=== PATIENT | female | born 1990 | race Two or more races ===

== ENCOUNTER 2024-02-21 07:35 | Inpatient (IN) | payer OTHER ==
[2024-02-21] MEDS: ELECTROLYTE-148 SOLN 500 ML IV ONE ×2 (08:30→10:35)
[2024-02-21 09:40] VITALS: BMI 32.1
[2024-02-21] MEDS ORDERED: IBUPROFEN 600 MG TABLET (FP) PO PRN (09:49)
[2024-02-21] MEDS ORDERED: ONDANSETRON 4 MG/2 ML VIAL IVPUSH PRN (09:49)
[2024-02-21] MEDS ORDERED: ACETAMINOPHEN 325 MG TABLET (FP) PO PRN (09:49)
[2024-02-21] MEDS: CITRIC ACID/SODIUM CITRATE 30 ML UNIT-DOSE CUP PO ONE (10:00)
[2024-02-21] MEDS ORDERED: ELECTROLYTE-148 SOLN 1,000 ML IV SCH (10:30)
[2024-02-21] MEDS ORDERED: morphine SULFATE/PF 1 MG/2 ML (2cc Syringe - QUVA) ONE (10:34)
[2024-02-21] MEDS ORDERED: PHENYLEPHRINE HCL 10 MG/1 ML SINGLE DOSE VIAL ONE (10:35)
[2024-02-21] MEDS ORDERED: ceFAZolin SODIUM 1 GM VIAL ONE ×2 (10:35→10:36)
[2024-02-21] MEDS ORDERED: SODIUM CHLORIDE 0.9% P/F 10 ML VIAL IJ ONE (10:35)
[2024-02-21] MEDS ORDERED: CITRIC ACID/SODIUM CITRATE 30 ML UNIT-DOSE CUP PO ONE (10:45)
[2024-02-21] MEDS ORDERED: ONDANSETRON 4 MG/2 ML VIAL ONE (10:55)
[2024-02-21] MEDS ORDERED: METOCLOPRAMIDE HCL INJECTION 10 MG/2 ML VIAL ONE (10:55)
[2024-02-21] MEDS ORDERED: OXYTOCIN 10 UNITS/ML VIAL ONE ×2 (11:06→11:22)
[2024-02-21] MEDS ORDERED: MIDAZOLAM HCL 2 MG/2 ML SINGLE DOSE VIAL ONE ×2 (11:34→12:11)
[2024-02-21] MEDS: TRIAMCINOLONE ACET 40MG/1ML VIAL SQ ONE (12:45)
[2024-02-21] MEDS ORDERED: KETOROLAC TROMETHAMINE 30 MG/1 ML VIAL ONE (12:51)
[2024-02-21] MEDS ORDERED: ONDANSETRON 4 MG/2 ML VIAL IVPB PRN (12:58)
[2024-02-21 13:00] LABS: CORD HCO3 21.7 mmHg (20-29); CORD PCO2 56.7 mmHg (30-78); CORD pH 7.201 (7.14-7.44)
[2024-02-21 13:00] LABS: CORD HCO3 20.5 mmHg (20-29); CORD PCO2 65.1 mmHg (30-78); CORD pH 7.116 (7.14-7.44)
[2024-02-21] MEDS: OXYTOCIN 20 UNITS in 0.9% NS 20 UNIT/1,000 ML INFUS.BAG IV SCH (14:31)
[2024-02-21] MEDS: ACETAMINOPHEN 1000 MG/100 ML BAG IVPB SCH (14:31)
[2024-02-21] MEDS ORDERED: OXYTOCIN 20 UNITS in 0.9% NS 20 UNIT/1,000 ML INFUS.BAG IV ONE (14:33)
[2024-02-21] MEDS ORDERED: ACETAMINOPHEN INJECTION 100 ML IVPB ONE (14:33)
[2024-02-21] MEDS: IBUPROFEN 800 MG/8 ML IJ IVPB SCH (16:40)
[2024-02-21] MEDS: morphine SULFATE/PF 1 MG/2 ML (2cc Syringe - QUVA) EP ONE (19:42)
[2024-02-21] MEDS: SIMETHICONE 80 MG TAB.CHEW (FP) PO PRN (19:44)
[2024-02-21] MEDS: SENNOSIDES/DOCUSATE COMBO (SENNA PLUS) TABLET (UD) PO SCH (21:32)
[2024-02-22 06:15] VITALS: RESP 18
[2024-02-22 06:48] LABS: BASO % 0.2 % (0-2.0); EOS % 0.3 % (0-4.5); HEMATOCRIT 29.4 % (32.4-45.2); HEMOGLOBIN 10.2 GM/dL (10.7-15.3); LYMPH % 11.5 % (8-40); MCH 30.2 pg (25.7-33.7); MCHC 34.6 g/dl (32.0-36.0); MEAN CELL VOLUME 87.1 fl (80-96); MEAN PLT VOLUME 8.5 fl (7.5-11.1); MONO % 8.5 % (3.8-10.2); NEUT % 79.5 % (42.8-82.8); PLATELET COUNT 176 10^3/uL (134-434); RBC 3.38 M/mm3 (3.60-5.2); RDW 14.1 % (11.6-15.6); WHITE BLOOD COUNT 12.5 K/mm3 (4.0-10.0)
[2024-02-22] MEDS: ENOXAPARIN NA (PORCINE) 40 MG/0.4 ML DISP.SYRIN SQ SCH (09:41)
[2024-02-22] MEDS: ACETAMINOPHEN 500 MG TABLET (FP) PO SCH (12:25)
[2024-02-22] MEDS ORDERED: IBUPROFEN 600 MG TABLET (FP) PO PRN (13:00)
[2024-02-22] MEDS ORDERED: ACETAMINOPHEN 325 MG TABLET (FP) PO PRN (13:30)
[2024-02-22] MEDS: IBUPROFEN 600 MG TABLET (FP) PO SCH (14:43)
[2024-02-22] MEDS: oxyCODONE HCL 5 MG TABLET PO PRN (17:59)
[2024-02-22] MEDS: BISACODYL 10 MG SUPP.RECT RC PRN (18:00)
[2024-02-23 08:31] LABS: BASO % 0.2 % (0-2.0); EOS % 1.4 % (0-4.5); HEMATOCRIT 27.8 % (32.4-45.2); HEMOGLOBIN 9.6 GM/dL (10.7-15.3); LYMPH % 16.8 % (8-40); MCH 30.5 pg (25.7-33.7); MCHC 34.5 g/dl (32.0-36.0); MEAN CELL VOLUME 88.4 fl (80-96); MEAN PLT VOLUME 8.8 fl (7.5-11.1); MONO % 11.6 % (3.8-10.2); PLATELET COUNT 182 10^3/uL (134-434); RBC 3.14 M/mm3 (3.60-5.2); RDW 14.3 % (11.6-15.6); WHITE BLOOD COUNT 10.6 K/mm3 (4.0-10.0)
[2024-02-23 22:46] VITALS: TEMP 98.7
[2024-02-24] MEDS: POLYETHYLENE GLYCOL (HEALTHYLAX) 3350 17 GM PACKET PO SCH (09:17)
[2024-02-24 10:23] VITALS: BP 111/65; PULSE 90
== END 2024-02-24 13:30 | disposition home or self-care (01) | DRG 540 ==
LOC: JLDR 07:35 → J3W 15:15
PROVIDERS: ADMIT Family Medicine; ATTEND Family Medicine
PROC: 10D00Z1 Extraction of Products of Conception, Low, Open Approach (ICD-10-PCS; principal; 2024-02-21)
DX: O34.218 Maternal care for other type scar from previous cesarean delivery (principal); Z3A.39 39 weeks gestation of pregnancy; Z37.0 Single live birth
CPT/HCPCS: 36415; 36600; 82803; 85025; 88307-TC; J0131